=== PATIENT | female | born 1950 | race Caucasian/White ===

== ENCOUNTER 2019-08-12 12:07 | Emergency (ER) | payer MEDICARE ==
--- NOTE | 2019-08-12 14:03 | RAD ---
LEFT HIP 2 VIEWS: Date: 08/12/19 HISTORY: Left hip pain. FINDINGS/IMPRESSION: Comparison made with exam of 07/31/19. Postop changes of total hip arthroplasty are again seen in good position and alignment without eviden ce of hardware complications. No acute fracture or dislocation seen. POS: [facility]
[2019-08-12] MEDS ORDERED: Morphine 4 MG/ML VIAL ONE (14:09)
== END 2019-08-12 14:35 | disposition home or self-care (01) ==
LOC: MADERS 12:07
DX: M25.552 Pain in left hip (principal); E78.5 Hyperlipidemia, unspecified; E78.00 Pure hypercholesterolemia, unspecified; F32.9 Major depressive disorder, single episode, unspecified; Z79.899 Other long term (current) drug therapy
CPT/HCPCS: 96372; J2270

== ENCOUNTER 2021-05-19 08:44 | Outpatient (CLI) | payer MEDICARE | END 2021-05-19 08:45 | disposition home or self-care (01) | LOC: MADRAD 08:44 | PROVIDERS: ATTEND Family Medicine | DX: R07.81 Pleurodynia (principal) ==

== ENCOUNTER 2021-06-02 15:30 | Outpatient (CLI) | payer MEDICARE | END 2021-06-02 15:31 | disposition home or self-care (01) | LOC: MADLAB 15:30 | PROVIDERS: ATTEND Family Medicine | DX: R35.0 Frequency of micturition (principal) | CPT/HCPCS: 87086 ==

== ENCOUNTER 2022-07-16 11:33 | Emergency (ER) | payer MEDICARE ==
[2022-07-16] MEDS ORDERED: Meclizine HCl 25 MG TAB ONE (12:11)
== END 2022-07-16 13:02 | disposition home or self-care (01) ==
LOC: MADERS 11:33
DX: R42 Dizziness and giddiness (principal); H61.22 Impacted cerumen, left ear; E78.00 Pure hypercholesterolemia, unspecified; Z79.899 Other long term (current) drug therapy
CPT/HCPCS: 99283

== ENCOUNTER 2022-10-27 11:22 | Outpatient (CLI) | payer MEDICARE | END 2022-10-27 11:23 | LOC: MADLABBHPM 11:22 → MADLAB 11:23 | PROVIDERS: ATTEND Family Medicine | DX: J06.9 Acute upper respiratory infection, unspecified (principal); Z20.822 Contact with and (suspected) exposure to COVID-19; Z53.9 Procedure and treatment not carried out, unspecified reason ==

== ENCOUNTER 2025-08-07 10:10 | Outpatient (CLI) | payer MEDICARE | END 2025-08-07 10:11 | disposition home or self-care (01) | LOC: MADRAD 10:10 | PROVIDERS: ATTEND Family Medicine | DX: R05.3 Chronic cough (principal) | CPT/HCPCS: 71046 ==